=== PATIENT | male | born 1960 | race Caucasian/White ===

== ENCOUNTER 2020-11-25 20:40 | Emergency (ER) | payer OTHER ==
[~2020-11-25] VITALS: Ht 167.6 cm; Wt 113.4 kg
[2020-11-25 20:40] VITALS: BP_SYST 123
--- NOTE | 2020-11-25 20:40 | NUR ---
Placed in room 1 . Placed on heel edge inker machine, blood pressure machine and pulse oximeter. To gown for exam. Side rails up. Report given to Self. ER Dr. Finney at bedside examining patient.
--- NOTE | 2020-11-25 21:00 | NUR ---
Patient transported to radiology/Ct via gurney, accompanied by electron beam photo mask technician and EMT Bull.
[2020-11-25] MEDS ORDERED: FURO-150 PO (21:07)
[2020-11-25] MEDS ORDERED: LISI10TA29 PO (21:07)
[2020-11-25] MEDS ORDERED: GLIP5TAB13 PO (21:07)
[2020-11-25] MEDS ORDERED: PRAD75 PO (21:07)
--- NOTE | 2020-11-25 21:11 | NUR ---
Note omar in ED - 11/25/20 at 2141 by [email or web address] Patient resting quietly. No acute distress noted. Vital signs within normal range. No adverse reaction noted after infusion of IV abx.
[2020-11-25 21:22] LABS: BASOPHILS # (AUTO) 0.1 K/uL (0.0-0.2); BASOPHILS % (AUTO) 0.9 % (0.0-2.0); EOSINOPHILS # (AUTO) 0.1 K/uL (0.0-0.4); EOSINOPHILS % (AUTO) 1.1 % (0.0-4.0); HEMATOCRIT 39.1 % (36-54); HEMOGLOBIN 13.1 g/dL (14.0-18.0); LYMPHOCYTES # (AUTO) 1.6 K/uL (1.0-5.5); LYMPHOCYTES % (AUTO) 18.2 % (20.5-51.5); MEAN CORPUSCULAR HEMOGLOBIN 31 pg (27-31); MEAN CORPUSCULAR HGB CONC 34 % (32-36); MEAN CORPUSCULAR VOLUME 92 fL (79.0-98.0); MONOCYTES # (AUTO) 0.7 K/uL (0.0-1.0); MONOCYTES % (AUTO) 7.9 % (1.7-9.3); NEUTROPHILS # (AUTO) 6.5 K/uL (1.8-7.7); NEUTROPHILS % (AUTO) 71.9 % (40.0-70.0); PLATELET COUNT (AUTO) 264 K/uL (130-430); RED BLOOD CELL COUNT(AUTO) 4.25 MIL/uL (4.2-6.2); RED CELL DISTRIBUTION WIDTH 14.4 % (9.0-15.0)
[2020-11-25 21:29] LABS: CALCIUM 8.9 mg/dL (8.4-11.0); CREATININE 1.64 mg/dL (0.55-1.30); POTASSIUM 4.1 mmol/L (3.5-5.1)
[2020-11-25 21:33] LABS: INR 1.1 (0.80-1.20); PROTHROMBIN TIME 10.9 SECS (9.5-12.5)
[2020-11-25 21:35] LABS: ALBUMIN 3.6 g/dL (3.4-4.8); TOTAL BILIRUBIN 0.5 mg/dL (0.0-1.0)
[2020-11-25] MEDS ORDERED: NACL 0.9% 1,000 ML IV ONE (22:00)
--- NOTE | 2020-11-25 22:26 | NUR ---
# 20 gauge angiocath placed to LAC. Use of asceptic technique. Opsite placed over site. Blood return noted Flushed with 10 cc of normal saline. No evidence of infiltration noted. Patient tolerated well. Patient original iv to right hand accidentally dislodged. Dressing placed to right hand at old iv site.
--- NOTE | 2020-11-25 22:27 | NUR ---
Medicated w/ NS 0.9% per MD orders. IVF infusing with no s/s of infiltration at this time. Will cont to monitor and observe for any adverse reaction. Will monitor iv site.
--- NOTE | 2020-11-25 23:10 | NUR ---
Received call from [facility] and was informed that patient is accepted to [facility] ER by Par[facility]. [facility] ambulance will arrive at 2345. Phone number for [place] for report [phone]
--- NOTE | 2020-11-25 23:16 | NUR ---
report called and given to Dex HARVEY at [facility].
--- NOTE | 2020-11-25 23:51 | NUR ---
Patient to be transferred to [facility]. Is being transferred due to higher level of care. Receiving facility has accepting physician and available space. ER physician has signed transfer form. Patient or responsible alliance party has agreed to transfer and signed form. Patient belongings inventoried and will be sent with patient. Copy of nursing notes, lab reports, EKG, Physicians Orders and X-rays to be sent with patient. Report called to Dex at receiving facility. Receiving physician is Paras Mckeon. [facility] ambulance service has been called for transfer. ETA is 2345. Report given to lead Lap Machine Tender.
[2020-11-25 23:53] VITALS: BP_SYST 129
== END 2020-11-25 23:56 | disposition short-term general hospital (02) ==
LOC: SED 20:40
DX: G45.9 Transient cerebral ischemic attack, unspecified (principal); E87.2 Acidosis; I10 Essential (primary) hypertension; E11.9 Type 2 diabetes mellitus without complications; I48.91 Unspecified atrial fibrillation; Z79.899 Other long term (current) drug therapy
CPT/HCPCS: 36415; 70450; 71045; 76376; 80053; 82550; 83605; 84484; 85025; 85610; 85730; 93005; 96360; 99285; J7030